=== PATIENT | female | born 1985 | race Caucasian/White ===

== ENCOUNTER 2018-11-01 16:17 | Emergency (ER) | payer BC, OTHER ==
[~2018-11-01] VITALS: Ht 160 cm; Wt 55.0 kg
[2018-11-01 16:20] VITALS: BP 116/78; PULSE 128; RESP 22; Ht 160 cm; Wt 55.0 kg
--- NOTE | 2018-11-01 16:32 | ERD ---
ER Documentation Chief Complaint Chief Complaint 13 WEEKS WITH VAG BLEEDING HPI 33-year-old female s/p IVF 08/18/18 presents to the ED with vaginal bleeding. Patient reports 2 large gushes of blood within the last hour along with pelvic cramping. Denies nausea or vomiting. No dysuria, polyuria, hematuria or flank pain. No fevers or chills. Patient had an ultrasound at her OB physician's office yesterday which revealed a viable, 13-week intrauterine . Prior ultrasound revealed a small subchorionic hemorrhage which was resolving. STAFF FORESTER: Dr Beatriz Venegas. [phone] ROS All systems reviewed and are negative except as per history of present illness. Allergies Allergies: Coded Allergies: No Known Allergy (Unverified , 11/01/18) PMhx/Soc History of Surgery: No Anesthesia Reaction: No Hx Respiratory Disorders: No Hx Cardiac Disorders: No Hx Psychiatric Problems: No Hx Miscellaneous Medical Probl: No Hx Alcohol Use: No Hx Substance Use: No Hx Tobacco Use: No FmHx No family history relevant to presenting complain Physical Exam Vitals Vital Signs Date Temp Pulse Resp B/P (MAP) Pulse Ox O2 O2 Flow FiO2 Time Delivery Rate 11/01/18 99.6 128 22 116/78 100 16:20 (91) Physical Exam Const: Anxious, moderate distress Head: Atraumatic Eyes: Normal Conjunctiva ENT: Normal External Ears, Nose and Mouth. Resp: Clear to auscultation bilaterally Cardio: Regular rate and rhythm, no murmurs Abd: Soft, gravid, nontender. No rebound or guarding. Normal bowel sounds : Deferred as per patient Skin: No petechiae or rashes Back: No midline or flank tenderness Ext: No cyanosis, or edema Neur: Awake and alert Psych: Normal Mood and Affect Procedures/MDM DOCUMENTS REVIEWED: ED nurse, no prior records IMAGING: PROCEDURE: US OB. CLINICAL INDICATION: Vaginal bleeding TECHNIQUE: Transabdominal views of the pelvis are available for review. COMPARISON: No prior studies are available for comparison. FINDINGS: There is a single intrauterine gestation with the crown-rump length measuring 6.7 cm, corresponding to a gestational age of 13 weeks and 0 days. The heart rate is noted at 163 bpm. The ovaries are not visualized. The placenta is posterior. There is no evidence of placental abruption or previa. There is a possible anterior component of the placenta versus uterine contractio n. The cervix measures 3.4 cm in length. There is no free fluid. RPTAT: AA IMPRESSION: Single live intrauterine with an estimated gestational age of 13 weeks and 0 days, based on ultrasound measurements. JEROME based on ultrasound measurements is 05/09/19. .Hector Romano MD, MD Date Time Electronically viewed and signed by .Hector Romano MD, MD on 11/01/2018 17:08 .S/ MEDICAL DECISION MAKIN-year-old female s/p IVF 08/18/18 presents to the ED with vaginal bleeding. Ultrasound to evaluate for viability, placenta previa, abruption, subchorionic hemorrhage and ectopic reveals a viable, 13-week intrauterine . Patient's STAFF FORESTER physician, Dr. Venegas was paged. Case discussed with OB resident . Dr Sanchez at [facility]. Chart was reviewed. Rh+ on labs from 12/2017 hence RhoGam is not indicated. Labs deferred as per patient. No further bleeding and hemodynamically stable. Abdominal exam is benign without significant tenderness, rebound, guarding or signs of peritonitis or an acute intra-abdominal process including but not limited to appendicitis. No urinary symptoms and urinalysis is deferred as patient is asymptomatic and will follow up with her PMD in the morning. Stable for discharge with pain, bleeding, fever precautionary instructions and outpatient follow-up as counseled in the morning. Counseled patient and family regarding diagnostic workup, diagnosis and need for followup. Understands to return to ED if symptoms recur, worsen or any other concerns. Departure Diagnosis: Primary Impression: Vaginal bleeding in patient at less than 20 weeks gestation Additional Impressions: Threatened 13 weeks gestation of Condition: SANYA Morris MD Nov 01, 2018 16:32
== END 2018-11-01 17:42 | disposition home or self-care (01) ==
LOC: FTE 16:17
DX: O20.9 Hemorrhage in early pregnancy, unspecified (principal); O20.0 Threatened abortion; Z3A.13 13 weeks gestation of pregnancy
CPT/HCPCS: 76801